=== PATIENT | male | born 1955 | race Caucasian/White ===

== ENCOUNTER 2017-03-11 10:52 | Emergency (ER) | payer OTHER ==
[~2017-03-11] VITALS: Ht 182.9 cm; Wt 116.8 kg
[~2017-03-11 10:52] MED LIST: ASCA500 PO; ESOM20CA PO; FAMO20TA11 PO; META1TAB22 PO; VITAMIN B2 PO
[2017-03-11 10:58] VITALS: TEMP 36.6; Ht 182.9 cm; Wt 116.8 kg
[2017-03-11 11:50] LABS: URINE APPEARANCE CLEAR (CLEAR); URINE BILIRUBIN NEG (NEG); URINE COLOR YELLOW; URINE NITRITE NEG (NEG); URINE SPECIFIC GRAVITY 1.017 (1.000-1.030); UROBILINOGEN NEG (NEG); ZZUR CULT IF INDIC CLEAN CATCH NO
[2017-03-11 11:50] LABS: BASO % 0.2 %; BASO ABS # 0.02 K/uL (0-0.2); COMPLETE YES; EOS % 0.8 %; HEMATOCRIT 42.9 % (42-52); IG% 0.4 %; LYMPH ABS # 2.08 K/uL (1.2-3.4); MEAN CELL VOLUME 96.6 fL (80-100); MEAN CORPUSCULAR HEMOGLOBIN 33.8 pg (25-34); MEAN PLATELET VOLUME 11.1 fL (7.4-10.4); MONO % 8.2 %; NEUT % 67.4 %; PLATELET COUNT 166 K/uL (130-400); RED BLOOD COUNT 4.44 M/uL (4.7-6.1); WHITE BLOOD COUNT 9.03 K/uL (4.8-10.8)
[2017-03-11 11:51] LABS: MANUAL MICROSCOPIC REQUIRED? NO; REVIEW REQ? NO
[2017-03-11 12:09] LABS: BUN/CREATININE RATIO 14.3 (10-20); CALCIUM 9.2 mg/dl (8.5-10.1); CREATININE 1.32 mg/dl (0.60-1.40); POTASSIUM 3.7 mmol/L (3.5-5.1)
[2017-03-11 12:12] LABS: ALB/GLOB RATIO 1.2 (0.9-2)
[2017-03-11] MEDS ORDERED: OPTIRAY 320 IV PRN (12:30)
--- NOTE | 2017-03-11 15:03 | DIAGNOSTIC IMAGING REPORT ---
ABD/PELVIS IV AND ORAL CONT CT DOSE: 1101.43 mGy.cm HISTORY: Flank pain RLQ abd pain TECHNIQUE: Multiaxial CT images of the abdomen and pelvis were performed following the use of intravenous and oral contrast. A dose lowering technique was utilized adhering to the principles of ALARA. COMPARISON STUDY: None. FINDINGS: Lung bases are clear. The liver spleen and pancreas are unremarkable. Kidneys negative for hydronephrosis. There is a 3 mm nonobstructing calcification mid aspect right kidney. Gallbladder is negative for distention. The appendix is normal. Bowel pattern is nonobstructive. There is findings of mild chronic sigmoid diverticulosis. There is no evidence for acute diverticulitis. There are no obstructive changes. IMPRESSION: 1. Normal appendix. 2. Mild/moderate chronic sigmoid diverticulosis. 3. No evidence for acute diverticulitis. 4. Nonobstructing right renal calcification. 5. 3 mm nonobstructing right renal calcification. The above report was generated using voice recognition software. It may contain grammatical, syntax or spelling errors. Electronically signed by: David Leslie M.D. 03/11/2017 3:02 PM Dictated Date/Time: 03/11/2017 2:59 PM
[2017-03-11 16:19] VITALS: BP 140/81; PULSE 68; O2SAT 98
--- NOTE | 2017-03-11 20:29 | EMERGENCY ROOM VISIT NOTE ---
ED Visit Note First contact with patient: 11:57 Chief Complaint: Abdominal pain. History of Present Illness: Mr. Lee is a 61 year-old white male who ambulates into the ED complaining of right lower quadrant abdominal pain. Historically patient reports renal calculi. Mr. Lee is a 61-year-old white male who ambulates into the ED complaining of right lower quadrant abdominal pain. He reports his pain started last evening approximately 12-13 hours ago. Since that time his pain has been constant. He describes his pain as a sharp discomfort just superior to McBurney's point. He rates his discomfort 5/10. His pain is nonradiating. His pain worsens with palpation and coughing. He reports he has taken some ibuprofen with mild relief of his discomfort. Associated with his pain he reports she's had a decreased appetite, mild nausea but no vomiting and some mild constipation. Patient denies fevers, chills, sweats, skin eruptions, skin color changes, upper respiratory tract symptoms, shortness of breath, chest pain, rectal bleeding, black/tarry stools, urinary symptoms, hematuria, back/flank pain. Review of Systems: As noted above in history of present illness. All body systems were reviewed and found to be negative as noted above. Past Medical History: As previously noted Current Medications: Patient denies. Allergies to Medications: Nitrates. Social History: Patient is currently employed; he feels safe in his home environment; he denies tobacco use. Physical Examination: Vital Signs: Date Time Temp Pulse Resp B/P (MAP) Pulse Ox O2 Delivery O2 Flow Rate FiO2 03/11/17 16:19 68 16 140/81 98 03/11/17 14:44 69 18 115/66 99 Room Air 03/11/17 12:58 68 18 133/74 98 Room Air 03/11/17 10:58 36.6 64 14 163/82 Room Air GENERAL: 61-year-old male in mild distress due to pain, nontoxic-appearing, afebrile and hemodynamically stable. NEUROLOGICAL: Awake, alert and oriented to person, place and time. Answering questions appropriately and following commands. Normal gait. Good hand eye coordination. SKIN: Warm, dry and pink. No soft tissue eruptions or trauma noted. HEENT: Atraumatic and normocephalic. PERRLA. Sclera white and conjunctiva pink. Oral cavity moist and pink. Pharynx is nonerythematous or edematous. Speech normal. No lymphadenopathy. Trachea midline. No jugular venous distention. BACK: No tenderness over the bony spine. No CVA tenderness. THORAX: Lungs sounds are clear to auscultation and equal bilaterally with symmetrical chest wall. No wheezing, rales or rhonchi. No crepitus, tenderness , subcutaneous air or deformities noted. HEART: Regular rate and rhythm. No gallops, rubs or murmurs are appreciated. ABDOMEN: Lead distended, soft with moderate tenderness in the right lower quadrant just superior to McBurney's point with mild guarding. Positive bowel sounds in all quadrants. No rigidity or organomegaly. EXTREMITIES: Moves all extremities well on command and with purpose. All distal neurovascular statuses are intact and equal bilaterally. ED Course: Patient is assessed as noted above. Laboratory Testing: Test 03/11/17 11:30 03/11/17 11:32 Range/Units White Blood Count 9.03 4.8-10.8 K/uL Red Blood Count 4.44 4.7-6.1 M/uL Hemoglobin 15.0 14.0-18.0 g/dL Hematocrit 42.9 42-52 % Mean Corpuscular Volume 96.6 80-100 fL Mean Corpuscular Hemoglobin 33.8 25-34 pg Mean Corpuscular Hemoglobin Concent 35.0 32-36 g/dl Platelet Count 166 130-400 K/uL Mean Platelet Volume 11.1 7.4-10.4 fL Neutrophils (%) (Auto) 67.4 % Lymphocytes (%) (Auto) 23.0 % Monocytes (%) (Auto) 8.2 % Eosinophils (%) (Auto) 0.8 % Basophils (%) (Auto) 0.2 % Neutrophils # (Auto) 6.08 1.4-6.5 K/uL Lymphocytes # (Auto) 2.08 1.2-3.4 K/uL Monocytes # (Auto) 0.74 0.11-0.59 K/uL Eosinophils # (Auto) 0.07 0-0.5 K/uL Basophils # (Auto) 0.02 0-0.2 K/uL RDW Standard Deviation 43.5 36.4-46.3 fL RDW Coefficient of Variation 12.5 11.5-14.5 % Immature Granulocyte % (Auto) 0.4 % Immature Granulocyte # (Auto) 0.04 0.00-0.02 K/uL Sodium Level 137 136-145 mmol/L Potassium Level 3.7 3.5-5.1 mmol/L Chloride Level 107 98-107 mmol/L Carbon Dioxide Level 26 21-32 mmol/L Anion Gap 4.0 3-11 mmol/L Blood Urea Nitrogen 19 7-18 mg/dl Creatinine 1.32 0.60-1.40 mg/dl Est Creatinine Clear Calc Drug Dose 79.5 ml/min Estimated GFR () 68.0 Estimated GFR (Non- 58.6 BUN/Creatinine Ratio 14.3 10-20 Random Glucose 93 70-99 mg/dl Calcium Level 9.2 8.5-10.1 mg/dl Total Bilirubin 0.5 0.2-1 mg/dl Aspartate Amino Transf (AST/SGOT) 14 15-37 U/L Alanine Aminotransferase (ALT/SGPT) 26 12-78 U/L Alkaline Phosphatase 69 45-117 U/L Total Protein 7.3 6.4-8.2 gm/dl Albumin 4.0 3.4-5.0 gm/dl Globulin 3.3 2.5-4.0 gm/dl Albumin/Globulin Ratio 1.2 0.9-2 Lipase 132 73-393 U/L Urine Color YELLOW Urine Appearance CLEAR CLEAR Urine pH 5.0 4.5-7.5 Urine Specific [place] 1.017 1.000-1.030 Urine Protein NEG NEG Urine Glucose (UA) NEG NEG Urine Ketones NEG NEG Urine Occult Blood NEG NEG Urine Nitrite NEG NEG Urine Bilirubin NEG NEG Urine Urobilinogen NEG NEG Urine Leukocyte Esterase NEG NEG CT Abdomen and Pelvis with IV and Oral Contrast: Was reviewed by myself and read by the radiologist showing normal. Appendix, mild to moderate chronic diverticulosis without signs of acute diverticulitis, nonobstructing right renal calculi. Was offered pain medication and refused. Patient was reassessed multiple times during his stay in the emergency department. Patient's case was reviewed with Dr. Guy; we agreed on diagnostic approach , treatment, disposition and plan. Patient was educated about today's findings and instructed on his treatment plan ; he verbalized understanding and agreement with this plan. Clinical Impression: Right lower quadrant. Decision-Making: Initially my differential diagnosis I considered appendicitis, ureter calculus, constipation, bowel obstruction, hepatitis and other causes. Disposition: Patient discharged home in stable condition; prior to departure he was reassessed and subjectively reported he was feeling better and rated his discomfort 3/10. Plan: Patient was encouraged to alternate ibuprofen and acetaminophen every 3 hours as needed for pain. Patient was encouraged to stay well-hydrated. Patient was encouraged to continue current medications. Patient was encouraged not to have anything the ED or drink after midnight. Patient was encouraged to follow-up with family physician tomorrow morning and if unable to see this family doctor return to the ED. Patient was encouraged return ED sooner for worsening/uncontrolled pain, fevers , vomiting or any new/concerning symptoms.
== END 2017-03-11 16:12 | disposition home or self-care (01) ==
LOC: C.EDB 10:54 → C.EDC 16:12
DX: R10.31 Right lower quadrant pain (principal); K57.90 Diverticulosis of intestine, part unspecified, without perforation or abscess without bleeding; N20.0 Calculus of kidney

== ENCOUNTER 2017-03-31 21:52 | Inpatient (IN) | payer OTHER ==
[~2017-03-31] VITALS: Ht 180.3 cm; Wt 117.8 kg
[2017-04-01 00:05] VITALS: BP 140/79; PULSE 75; TEMP 36.9; O2SAT 98; Ht 180.3 cm; Wt 117.8 kg
[2017-04-01] MEDS ORDERED: MoRPHine SULFATE 2 MG/ML CARP IV PRN (01:15)
[2017-04-01] MEDS ORDERED: ACETAMINOPHEN 325 MG TAB PO PRN (01:15)
[2017-04-01] MEDS ORDERED: NITROGLYCERIN 0.4 MG SL PER TAB CHARGE SL PRN (01:15)
[2017-04-01] MEDS ORDERED: POLYETHYLENE (MIRALAX) 17 GM PACK PO PRN (01:15)
[2017-04-01] MEDS ORDERED: PHARMACIST DISCHARGE MED REC CONSULT PRN (01:15)
[2017-04-01] MEDS ORDERED: ALUMINUM/MAGNESIUM/SIMETH (MAALOX MAX) 30 ML UDC PO PRN (01:15)
[2017-04-01] MEDS ORDERED: MAGNESIUM HYDROXIDE SUSP 30 ML UDC PO PRN (01:15)
[2017-04-01] MEDS ORDERED: ONDANSETRON INJ 2 MG/ML 2 ML VIAL IV PRN (01:15)
[2017-04-01 01:35] LABS: BASO % 0.2 %; BASO ABS # 0.02 K/uL (0-0.2); EOS % 0.8 %; EOS ABS # 0.07 K/uL (0-0.5); HEMATOCRIT 40.1 % (42-52); HEMOGLOBIN 14.2 g/dL (14.0-18.0); IG# 0.03 K/uL (0.00-0.02); LYMPH % 25.6 %; LYMPH ABS # 2.17 K/uL (1.2-3.4); MEAN CELL VOLUME 96.6 fL (80-100); MEAN CORPUSCULAR HEMOGLOBIN 34.2 pg (25-34); MEAN CORPUSCULAR HGB CONC 35.4 g/dl (32-36); MONO % 12.4 %; MONO ABS # 1.05 K/uL (0.11-0.59); NEUT % 60.6 %; NEUT ABS # 5.15 K/uL (1.4-6.5); PLATELET COUNT 166 K/uL (130-400); RED CELL DISTRIBUTION WIDTH CV 12.6 % (11.5-14.5); RED CELL DISTRIBUTION WIDTH SD 43.8 fL (36.4-46.3); WHITE BLOOD COUNT 8.49 K/uL (4.8-10.8)
[2017-04-01] MEDS ORDERED: OMEP20TA PO (01:52)
[2017-04-01 02:01] LABS: PTT PATIENT 25.5 SECONDS (21.0-31.0)
[2017-04-01 02:10] LABS: BLOOD UREA NITROGEN 19 mg/dl (7-18); CALCIUM 8.7 mg/dl (8.5-10.1); CARBON DIOXIDE 24 mmol/L (21-32); CKMB 1.1 ng/ml (0.5-3.6); GLUCOSE 109 mg/dl (70-99); POTASSIUM 3.9 mmol/L (3.5-5.1); SODIUM 140 mmol/L (136-145)
--- NOTE | 2017-04-01 02:22 | History and Physical ---
History & Physical Date & Time of Service: Apr 01, 2017 at 02:00 Chief Complaint: Stroke-Like Symptoms, Transient Global Amnesia Primary Care Physician: Frank Lopez M.D. History of Present Illness Source: patient, family, hospital records This is a 62 yo m with a history of SON, venous insufficiency and migraine with scotoma that is a direct transfer from [facility]. The patient states that at approx 1630 today the patient had a sudden surge of a warm sensation/ tingling that originated from his arms and throat and shot into his chest. Right after he developed some mild confusion because he went to look at his fit bit to check his heart rate and he felt unable to work the watch. This lasted a short time. Approx 15 minutes after this episode he had a second episode which was similar however he was now unable to remember a recent conversation, could not remember his birthday ( which was 2 days prior), a recent vacation or where he was. This was associated with one of his typical migraine headaches however was slightly more severe in nature. It was frontal, without photophobia or his "normal flashing lights" and was associated with nausea and a "weird taste in my mouth almost like I was holding my breath for a long time". He currently has a ORELLANA which is a 2/10 and has migrated to the occipital region. He did note that since he started avoiding nitrates in foods and being aware of stress and sleep he has one migraine every couple months but he had three cluster together within the last two weeks but without the amnesia episodes. He was evaluated in the [place] ED and CT was unremarkable except for some mild thickening of the left maxillary sinus. Blood work was unremarkable and included a BMP, CBC, troponin. UA and U tox was negative. Concern for stroke and requiring further evaluation at a facility that can provide a higher level of care the patient was transferred here. The patient has no history of TIA/ Stroke/ [place] in him or his family. He is a non smoker/ never smoker. Patient was recently seen in ED for RLQ pain which has since resolved. No history of DVT/PE or recent prolonged travel. Past Medical/Surgical History Nephrolithiasis Migraine with Scotoma Venous insufficiency GERD DDD and associated peripheral neuropathy of feet Family History Cancer Social History Smoking Status: Never Smoker Smokeless Tobacco Use: No Alcohol Use: none Drug Use: none Marital Status: Housing status: lives with family Occupational Status: employed ([employer]) Allergies Coded Allergies: Nitrates, Organic (Unverified Adverse Reaction, Severe, headaches,affects vision, 04/01/17) Home Medications Scheduled PRN Omeprazole (Omeprazole), 1 TAB PO DAILY PRN for Indigestion Review of Systems Constitutional: No fever, No chills, No sweats Eyes: No worsening of vision ENT: No hearing loss, No nasal symptoms, No sore throat, No trouble swallowing Respiratory: No cough, No sputum, No wheezing, No shortness of breath, No dyspnea on exertion, No dyspnea at rest Cardiovascular: No chest pain, No palpitations Abdomen: + nausea, No pain, No vomiting, No diarrhea, No constipation, No GI bleeding Musculoskeletal: + problem reported (denies calf pain), No joint pain, No muscle pain, No swelling Genitourinary - Male: No hematuria, No dysuria Neurologic: + memory loss, + numbness/tingling (decreased sensation to top of right foot and bottom of left which is BL from DDD), No weakness, No balance problems Psychiatric: + anxiety (revolving around this episode of amnesia), No depression symptoms Endocrine: No fatigue Hematologic / Lymphatic: No abnormal bleeding/bruising Integumentary: No rash Physical Exam Vital Signs Date Time Temp Pulse Resp B/P (MAP) Pulse Ox O2 Delivery O2 Flow Rate FiO2 04/01/17 00:05 36.9 75 18 140/79 98 Room Air General Appearance: no apparent distress Head: normocephalic, atraumatic Eyes: normal inspection, PERRL, EOMI, sclerae normal ENT: normal ENT inspection, hearing grossly normal, pharynx normal, + pertinent finding (without uvular or tongue deviation) Neck: supple, thyroid normal, no JVD, no carotid bruits, trachea midline Respiratory/Chest: normal breath sounds, no respiratory distress, no accessory muscle use Cardiovascular: regular rate, rhythm, no murmur, normal peripheral pulses Abdomen/GI: normal bowel sounds, non tender, soft, no organomegaly Back: normal inspection, no CVA tenderness, normal range of motion Extremities/Musculoskelatal: normal inspection, no calf tenderness, + pedal edema (+3 pedal edema on right and +2 on left BL) Neurologic/Psych: 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, no motor/sensory deficits (except decreased sensation to the dorsal aspect of right foot and plantar aspect of left foot ), alert, normal mood/affect, normal reflexes (Patellar +2), oriented x 3, + pertinent finding (no drift appreciated, without disdiadokinesia, coordination and blaance intact, babinski WNL, no ankle clonus ) Skin: normal color, warm/dry, no rash Lymphatic: no adenopathy Diagnostics Laboratory Results Results Past 24 Hours Test 04/01/17 01:09 04/01/17 01:27 Range/Units Creatine Kinase MB Ratio 0-3.0 White Blood Count 8.49 4.8-10.8 K/uL Red Blood Count 4.15 4.7-6.1 M/uL Hemoglobin 14.2 14.0-18.0 g/dL Hematocrit 40.1 42-52 % Mean Corpuscular Volume 96.6 80-100 fL Mean Corpuscular Hemoglobin 34.2 25-34 pg Mean Corpuscular Hemoglobin Concent 35.4 32-36 g/dl Platelet Count 166 130-400 K/uL Mean Platelet Volume 11.0 7.4-10.4 fL Neutrophils (%) (Auto) 60.6 % Lymphocytes (%) (Auto) 25.6 % Monocytes (%) (Auto) 12.4 % Eosinophils (%) (Auto) 0.8 % Basophils (%) (Auto) 0.2 % Neutrophils # (Auto) 5.15 1.4-6.5 K/uL Lymphocytes # (Auto) 2.17 1.2-3.4 K/uL Monocytes # (Auto) 1.05 0.11-0.59 K/uL Eosinophils # (Auto) 0.07 0-0.5 K/uL Basophils # (Auto) 0.02 0-0.2 K/uL RDW Standard Deviation 43.8 36.4-46.3 fL RDW Coefficient of Variation 12.6 11.5-14.5 % Immature Granulocyte % (Auto) 0.4 % Immature Granulocyte # (Auto) 0.03 0.00-0.02 K/uL EKG [place] EKG reviewed and HR 60, NSR without ischemic changes or ectopic beats Impression Assessment and Plan This is a 62 yo m presenting to us after an episode of global transient ischemia concerning for TIA vs stroke vs migraine Global transient ischemia- r/o stroke -tele admission per cva protocol - echo in am - CT sent with patient, to be uploaded - MRI brain combo - Carotid dopplers - echo in am - HBA1C and FLP pending for am - troponin repeat - neurochecks q2h per protocol - PT OT Speech pending - Advance diet as tolerated after dysphagia screen - neuro consult Venous insufficiency - Continue Spironolactone 50 mg daily SON - CPAP HS GERD - Ranitidine prn available - patient takes omeprazole prn DVT Prophylaxis SCD full code Resident Physician Supervision Note: Pt evaluated independently. I discussed the case with the resident and agree with the findings and plan as documented in the note. Any exceptions or clarifications are listed here: 62 y/o M Hx SON, GERD - presenting as direct admission from [facility] due to 2 transient episodes of eihter confusion or acute memory loss - associated with preceding paresthesias. OE AAO x 3 S1,2 R CTAB NT, ND No CCE No deficits P: Pt will be evaluated for TIA/CVA - MRI/MRA, neuro consult pending Provided with ASA and a Statin Cont CPAP for SON Assigned to tlelemetry - neurochecks requested Documented By: Ramone Ngo Level of Care Telemetry Advanced Directives Existing Living Will: No Existing Power of Glass Engraver: No Resuscitation Status FULL RESUSCITATION VTE Prophylaxis VTE Risk Assessment Done? Y/N: Yes Risk Level: Moderate Given or contraindicated: SCD's Social Service Consult None Apply Note Total Time: Critical Care 30 - 74 minutes Additional Copies To Frank Lopez M.D.
[2017-04-01] MEDS ORDERED: RANITIDINE HCL 150 MG TAB PO PRN (02:30)
[2017-04-01] MEDS ORDERED: hydrOXYzine HCL 25 MG TAB PO PRN (02:30)
[2017-04-01] MEDS ORDERED: GADAVIST IV PRN (03:20)
[2017-04-01 04:14] VITALS: PULSE 60; O2SAT 96
[2017-04-01 04:24] VITALS: BP 108/67; PULSE 56; TEMP 36.7; O2SAT 96
[2017-04-01 06:58] LABS: HEMOGLOBIN A1C 5.4 % (4.5-5.6)
--- NOTE | 2017-04-01 07:15 | DIAGNOSTIC IMAGING REPORT ---
BILATERAL CAROTID DOPPLER STUDY HISTORY: global transient amnesia COMPARISON: None. TECHNIQUE: Real-time, grayscale, and color Doppler sonography of the carotid arteries was performed. Imaging reviewed in the transverse and longitudinal planes. All measurements were calculated based on NASCET criteria. FINDINGS: Antegrade flow is seen in the bilateral vertebral arteries. The brachial pressures are hemodynamically similar. Minimal scattered calcified plaque within the carotid arteries. The peak systolic velocity within the right ICA is 78 cm/s. The right systolic ratio is 1.1. The peak systolic velocity within the left ICA is 87 cm/s. The left systolic ratio is 1.0. IMPRESSION: No hemodynamically significant stenosis seen within the carotid arteries. Electronically signed by: Kofi López M.D. 04/01/2017 7:14 AM Dictated Date/Time: 04/01/2017 7:13 AM
[2017-04-01 07:20] VITALS: BP 121/72; PULSE 66; TEMP 36.5; O2SAT 98
--- NOTE | 2017-04-01 07:23 | DIAGNOSTIC IMAGING REPORT ---
Brain MRI WITH AND WITHOUT CONTRAST HISTORY: Memory loss. Migraine. Stroke like symptoms TECHNIQUE: Multiplanar multisequence MRI of the brain was performed both before and after the intravenous administration of contrast. COMPARISON STUDY: Outside hospital head CT 03/31/2017. FINDINGS: There are no areas of restricted diffusion to suggest acute infarction. The midline structures are intact. Mild mucosal thickening within the maxillary sinuses. The mastoid air cells are clear. The ventricles and sulci are within normal limits for age. There is no mass, hematoma, midline shift. The major vascular flow-voids at the skull base are well maintained. Postcontrast sequences show no areas of abnormal enhancement. IMPRESSION: No acute intracranial abnormality. Electronically signed by: Kofi López M.D. 04/01/2017 7:22 AM Dictated Date/Time: 04/01/2017 7:17 AM
[2017-04-01] MEDS ORDERED: ATORVASTATIN 20 MG TAB PO SCH (09:00)
[2017-04-01] MEDS ORDERED: SPIRONOLACTONE 25 MG TAB PO SCH (09:00)
[2017-04-01] MEDS ORDERED: ASPIRIN/ALUM/MAGNES/CAL CARB 325 MG TAB PO SCH (09:00)
[2017-04-01] MEDS ORDERED: PERFLUTREN LIPID MICROSPHERE (DEFINITY) IV ONE (09:20)
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
[2017-04-01 11:58] VITALS: BP 148/84; PULSE 68; TEMP 36.4; O2SAT 99
--- NOTE | 2017-04-01 12:02 | ECHOCARDIOGRAM REPORT ---
*NOTICE TO RECEIVING DEMOCRAT AGENCY This information is strictly Confidential and protected under [place] law. [place] law prohibits you from making any further disclosure of this information unless further disclosure is expressly permitted by the written consent of the person to whom it pertains or is authorized by law. A general authorization for the release of medical or other information is not sufficient for this purpose. Hospital accepts no responsibility if the information is made available to any other person, INCLUDING THE PATIENT. Interpretation Summary * Name: LETICIA COX Study Date: 04/01/2017 08:19 AM BP: 121/72 mmHg * Patient Location: C.2T\S\E218\S\1 HR: 66 * : 1955 (M/d/yyyy) Gender: Male Height: 71 in * Age: 62 yrs Ethnicity: CA Weight: 260 lb * Ordering Physician: Lashaun Romano * Referring Physician: Ramone Ngo * Performed By: Janet Rivas RDCS * * Reason For Study: Stroke like symptoms * BSA: 2.4 m2 * No cardiac source of emboli noted. * -- Conclusions -- * Left ventricular systolic function is normal. * Injection of contrast documented no interatrial shunt. Procedure Details * A complete two-dimensional transthoracic echocardiogram was performed (2D, M-mode, Doppler and color flow Doppler). * A saline contrast injection was performed to assess for cardiac shunting. * The injection was performed through an intravenous line in the right arm. * The attending nurse who injected the saline contrast was Eve Collier RN. * A total of 10 cc of agitated saline was given. * A contrast injection of Definity was performed to improve assessment of LV function. * Contrast was injected into an intravenous site in the right arm. * One vial of Definity ultrasound contrast was diluted in normal saline to a total volume of 10 ml. A total of '3' ml of solution was administered during imaging. * Lot # [id number] of Definity utilized for procedure. * Expiration date 1 May 05. * The attending nurse who injected the contrast agent was Eve Collier RN. Left Ventricle * The left ventricle is normal in size. * There is normal left ventricular wall thickness. * Left ventricular systolic function is normal. * Ejection Fraction = 50-55%. * Normal diastolic function * The left ventricular wall motion is normal. Right Ventricle * The right ventricle is normal in size and function. * The right ventricular systolic function is normal as assessed by tricuspid annular plane systolic excursion (TAPSE) (normal >1.5 cm). Atria * The left atrial size is normal. * Right atrial size is normal. * Injection of contrast documented no interatrial shunt. Mitral Valve * The mitral valve is grossly normal. * There is no mitral regurgitation noted. Tricuspid Valve * The tricuspid valve is not well visualized, but is grossly normal. * There is mild tricuspid regurgitation. Aortic Valve * The aortic valve is normal in structure and function. * No hemodynamically significant valvular aortic stenosis. * There is no significant aortic regurgitation. Great Vessels * The aortic root is normal size. Pericardium/Pleural * There is no pericardial effusion. MMode 2D Measurements and Calculations IVSd 1.2 cm LVIDd 4.6 cm LVIDs 3.2 cm LVPWd 1.1 cm IVS/LVPW 1.1 FS 30.4 % EDV(Teich) 97.0 ml ESV(Teich) 40.9 ml EF(Teich) 57.8 % EDV(cubed) 96.9 ml ESV(cubed) 32.7 ml EF(cubed) 66.2 % LV mass(C)d 188.3 grams LV mass(C)dI 79.9 grams/m\S\2 SV(Teich) 56.0 ml SI(Teich) 23.8 ml/m\S\2 SV(cubed) 64.1 ml SI(cubed) 27.2 ml/m\S\2 Ao root diam 2.9 cm Ao root area 6.4 cm\S\2 ACS 1.9 cm LA dimension 3.8 cm asc Aorta Diam 3.3 cm LA/Ao 1.3 LVOT diam 2.0 cm LVOT area 3.1 cm\S\2 LVAd ap4 39.5 cm\S\2 LVLd ap4 8.8 cm EDV(MOD-sp4) 143.5 ml EDV(sp4-el) 150.9 ml LVAs ap4 22.2 cm\S\2 LVLs ap4 6.6 cm ESV(MOD-sp4) 61.3 ml ESV(sp4-el) 63.4 ml EF(MOD-sp4) 57.2 % EF(sp4-el) 58.0 % LVAd ap2 48.7 cm\S\2 LVLd ap2 9.4 cm EDV(MOD-sp2) 208.5 ml EDV(sp2-el) 213.7 ml LVAs ap2 26.8 cm\S\2 LVLs ap2 7.2 cm ESV(MOD-sp2) 82.0 ml ESV(sp2-el) 85.2 ml EF(MOD-sp2) 60.7 % EF(sp2-el) 60.2 % LVLd %diff 6.8 % EDV(MOD-bp) 176.2 ml LVLs %diff 7.8 % ESV(MOD-bp) 73.5 ml EF(MOD-bp) 58.3 % SV(MOD-sp4) 82.1 ml SI(MOD-sp4) 34.8 ml/m\S\2 SV(MOD-sp2) 126.6 ml SI(MOD-sp2) 53.7 ml/m\S\2 SV(MOD-bp) 102.7 ml SI(MOD-bp) 43.6 ml/m\S\2 SV(sp4-el) 87.5 ml SI(sp4-el) 37.1 ml/m\S\2 SV(sp2-el) 128.6 ml SI(sp2-el) 54.5 ml/m\S\2 Doppler Measurements and Calculations MV E max raquel 99.4 cm/sec MV A max raquel 95.1 cm/sec MV E/A 1.0 MV dec time 0.23 sec Ao V2 max 148.0 cm/sec Ao max PG 8.8 mmHg Ao max PG (full) 4.5 mmHg ISAC(V,A) 2.2 cm\S\2 ISAC(V,D) 2.2 cm\S\2 LV V1 max PG 4.2 mmHg LV V1 max 102.8 cm/sec PA V2 max 116.7 cm/sec PA max PG 5.5 mmHg PA acc slope 436.7 cm/sec\S\2 PA acc time 0.17 sec PI max raquel 190.0 cm/sec PI max PG 14.4 mmHg PI dec slope 176.0 cm/sec\S\2 PI P1/2t 316.3 msec TR max raquel 226.7 cm/sec PA pr(Accel) 4.5 mmHg
--- NOTE | 2017-04-01 12:36 | Family Medicine Progress Note ---
Progress Note Date of Service Apr 01, 2017. Subjective Pt evaluation today including: conversation w/ patient, physical exam, chart review, lab review Pain: denies any ORELLANA this AM PO Intake: tolerating Voiding: no voiding problems This AM denies any ORELLANA, dizziness, sob, cp, abdominal pain, n/v, dysuria, d/c. Constitutional: No fever, No chills Respiratory: No shortness of breath Cardiovascular: No chest pain Abdomen: No pain, No nausea, No vomiting, No diarrhea, No constipation Male : No dysuria Neurologic: + problem reported (denies ORELLANA/dizziness) Medications Current Inpatient Medications Medications (Trade) Dose Ordered Sig/Kallie Route Start Time Stop Time Status Last Admin Dose Admin Miscellaneous Information (Pharmacist Discharge Med Rec Consult) 1 ea UD PRN N/A 04/01/17 01:15 05/01/17 01:14 Acetaminophen (Tylenol Tab) 650 mg Q4H PRN PO 04/01/17 01:15 05/01/17 01:14 Al Hydrox/Mg Hydrox/Simethicone (Maalox Max Susp) 15 ml Q4H PRN PO 04/01/17 01:15 05/01/17 01:14 Magnesium Hydroxide (Milk Of Magnesia Susp) 30 ml Q12H PRN PO 04/01/17 01:15 05/01/17 01:14 Ondansetron HCl (Zofran Inj) 4 mg Q6H PRN IV 04/01/17 01:15 05/01/17 01:14 Nitroglycerin (Nitrostat Tab) 0.4 mg UD PRN SL 04/01/17 01:15 05/01/17 01:14 Morphine Sulfate (MoRPHine SULFATE INJ) 2 mg Q30M PRN IV 04/01/17 01:15 04/15/17 01:14 Polyethylene (Miralax Powder Packet) 17 gm DAILY PRN PO 04/01/17 01:15 05/01/17 01:14 Ranitidine HCl (zANTac TAB) 150 mg BID PRN PO 04/01/17 02:30 05/01/17 02:29 Spironolactone (Aldactone Tab) 50 mg QAM PO 04/01/17 09:00 05/01/17 08:59 04/01/17 10:05 50 MG Hydroxyzine HCl (Vistaril Tab) 25 mg HS PRN PO 04/01/17 02:30 05/01/17 02:29 Gadobutrol (Gadavist) 11.5 mmol UD PRN IV 04/01/17 03:20 04/05/17 03:19 Atorvastatin Calcium (Lipitor Tab) 20 mg QAM PO 04/01/17 09:00 05/01/17 08:59 04/01/17 10:04 20 MG Aspirin (Ecotrin Tab) 81 mg QAM PO 04/02/17 09:00 05/02/17 08:59 Objective Vital Signs Date Time Temp Pulse Resp B/P (MAP) Pulse Ox O2 Delivery O2 Flow Rate FiO2 04/01/17 11:58 36.4 68 17 148/84 (105) 99 Room Air 04/01/17 08:00 Room Air 04/01/17 07:20 36.5 66 17 121/72 (88) 98 Room Air 04/01/17 04:24 36.7 56 18 108/67 (81) 96 Room Air 04/01/17 04:14 60 96 04/01/17 04:04 Nasal Cannula 2.0 04/01/17 00:05 36.9 75 18 140/79 98 Room Air Physical Exam General Appearance: no apparent distress Eyes: normal inspection, sclerae normal Respiratory/Chest: lungs clear, normal breath sounds Cardiovascular: regular rate, rhythm, no murmur Abdomen: normal bowel sounds, non tender, soft Neurologic/Psychiatric: switchboard wirer II-XII nml as tested, no motor/sensory deficits, alert, oriented x 3 Skin: warm/dry Laboratory Results 04/01/17 01:27 Red Blood Count 4.15, Mean Corpuscular Volume 96.6, Mean Corpuscular Hemoglobin 34.2, Mean Corpuscular Hemoglobin Concent 35.4, Mean Platelet Volume 11.0, Neutrophils (%) (Auto) 60.6, Lymphocytes (%) (Auto) 25.6, Monocytes (%) (Auto) 12.4, Eosinophils (%) (Auto) 0.8, Basophils (%) (Auto) 0.2, Neutrophils # (Auto ) 5.15, Lymphocytes # (Auto) 2.17, Monocytes # (Auto) 1.05, Eosinophils # (Auto ) 0.07, Basophils # (Auto) 0.02 04/01/17 01:27 Test 04/01/17 01:09 04/01/17 01:27 Creatine Kinase MB Ratio (0-3.0) White Blood Count 8.49 K/uL (4.8-10.8) Red Blood Count 4.15 M/uL (4.7-6.1) Hemoglobin 14.2 g/dL (14.0-18.0) Hematocrit 40.1 % (42-52) Mean Corpuscular Volume 96.6 fL (80-100) Mean Corpuscular Hemoglobin 34.2 pg (25-34) Mean Corpuscular Hemoglobin Concent 35.4 g/dl (32-36) Platelet Count 166 K/uL (130-400) Mean Platelet Volume 11.0 fL (7.4-10.4) Neutrophils (%) (Auto) 60.6 % Lymphocytes (%) (Auto) 25.6 % Monocytes (%) (Auto) 12.4 % Eosinophils (%) (Auto) 0.8 % Basophils (%) (Auto) 0.2 % Neutrophils # (Auto) 5.15 K/uL (1.4-6.5) Lymphocytes # (Auto) 2.17 K/uL (1.2-3.4) Monocytes # (Auto) 1.05 K/uL (0.11-0.59) Eosinophils # (Auto) 0.07 K/uL (0-0.5) Basophils # (Auto) 0.02 K/uL (0-0.2) RDW Standard Deviation 43.8 fL (36.4-46.3) RDW Coefficient of Variation 12.6 % (11.5-14.5) Immature Granulocyte % (Auto) 0.4 % Immature Granulocyte # (Auto) 0.03 K/uL (0.00-0.02) Prothrombin Time 10.0 SECONDS (9.0-12.0) Prothromb Time International Ratio 1.0 (0.9-1.1) Activated Partial Thromboplast Time 25.5 SECONDS (21.0-31.0) Partial Thromboplastin Ratio 1.0 Anion Gap 9.0 mmol/L (3-11) Est Creatinine Clear Calc Drug Dose 78.9 ml/min Estimated GFR () 68.7 Estimated GFR (Non- 59.3 BUN/Creatinine Ratio 14.8 (10-20) Estimated Average Glucose 108 mg/dl Hemoglobin A1c 5.4 % (4.5-5.6) Calcium Level 8.7 mg/dl (8.5-10.1) Magnesium Level 1.9 mg/dl (1.8-2.4) Creatine Kinase MB 1.1 ng/ml (0.5-3.6) Troponin I < 0.015 ng/ml (0-0.045) Triglycerides Level 267 mg/dl (0-150) Cholesterol Level 188 mg/dl (0-200) HDL Cholesterol 31 mg/dl LDL Cholesterol, Calculated 104 mg/dl VLDL Cholesterol, Calculated 53 mg/dl Cholesterol/HDL Ratio 6.1 Resident Involvement: Resident Care Provided Care Provided: Adult Hospital Medicine Reviewed: Pt Seen/Exam by Me History See discharge summary for details.
[2017-04-01] MEDS ORDERED: LPT20 PO ×2 (12:52→15:02)
[2017-04-01] MEDS ORDERED: ASPEC81 PO ×2 (12:52→15:02)
[2017-04-01] MEDS ORDERED: VRPSR180 PO (12:53)
--- NOTE | 2017-04-01 12:54 | Discharge Instructions ---
Discharge Instructions Date of Service Apr 01, 2017. Admission Reason for Admission: Stroke-Like Symptoms, Transient Global Amnesia Discharge Discharge Diagnosis / Problem: vasospasm induced transient global amnesia Discharge Goals Goal(s): Decrease discomfort, Diagnostic testing, Therapeutic intervention Activity Recommendations Activity Limitations: resume your previous activity . Instructions / Follow-Up Instructions / Follow-Up Mr. Rosa connors were admitted for transient episode of amnesia and headache. You were seen by our neurologist, Dr. Alberto and had imaging of your carotid arteries and MRI which were normal. Dr. Alberto did not believe you were having a transient ischemic attack or stroke but rather an episode of headache and amnesia (memory disturbance) caused by spasm of your veins which seems to be also causing your migraine headaches. He would like to start you on Verapamil SR 180mg once a day in the morning. He also recommended starting you on aspirin 81mg once a day, and atorvastatin 20mg once a day. - Please take the following medications as prescribed and sent to your pharmacy : - Verapamil SR 180mg once a day in the morning - Aspirin 81mg once a day - Atorvastatin 20mg once a day - Continue taking home medications: omeprazole for your acid reflux and spironolactone for your venous insufficiency as prescribed - Follow up with your primary care provider within a week Current Hospital Diet Patient's current hospital diet: Low Sodium Diet (2gm Na), AHA Diet (Heart Healthy) Discharge Diet Recommended Diet: AHA Diet (Heart Healthy) Pending Studies Studies pending at discharge: no Laboratory Results Hemoglobin A1c Test 04/01/17 01:27 Range/Units Estimated Average Glucose 108 mg/dl Hemoglobin A1c 5.4 4.5-5.6 % Lipid Panel Test 04/01/17 01:27 Range/Units Triglycerides Level 267 H 0-150 mg/dl Cholesterol Level 188 0-200 mg/dl HDL Cholesterol 31 mg/dl Cholesterol/HDL Ratio 6.1 LDL Cholesterol, Calculated 104 mg/dl Medical Emergencies . Who to Call and When: Medical Emergencies: If at any time you feel your situation is an emergency, please call 911 immediately. . Non-Emergent Contact Non-Emergency issues call your: Primary Care Provider . . "Provider Documentation" section prepared by Jordon Grace. . VTE Core Measure Inpt VTE Proph given/why not?: SCD's
[2017-04-01] MEDS ORDERED: VRP40 PO (15:02)
[2017-04-01 15:45] VITALS: BP 135/78; PULSE 63; TEMP 36.4; O2SAT 100
--- NOTE | 2017-04-01 19:00 | Discharge Summary ---
Discharge Summary Date of Service Apr 01, 2017. Discharge Summary Admission Date: Mar 31, 2017 at 23:55 Discharge Date: Apr 01, 2017 Discharge Disposition: Home Principal Diagnosis: transient amnesia induced by vasospasm Problems/Secondary Diagnoses: GERD SON Venous insufficiency Procedures: MRI brain with and without contrast - no acute IC pathology B/l carotid dopplers - no HD significant stenosis Consultations: neurology - Dr. Pack Medication Reconciliation New Medications: Verapamil (Calan) 40 Mg Tab 40 MG PO DAILY for 30 Days, #30 TAB Aspirin (Aspirin EC Low Dose) 81 Mg Ectab 81 MG PO QAM for 30 Days, #30 TAB Atorvastatin (Lipitor) 20 Mg Tab 20 MG PO QAM for 30 Days, #30 TAB Continued Medications: Omeprazole (Omeprazole) 20 Mg Tab 1 TAB PO DAILY PRN for Indigestion for 90 Days, #90 TAB 1 Refill Discharge Exam Physical Exam General Appearance: no apparent distress Eyes: normal inspection, sclerae normal Respiratory/Chest: lungs clear, normal breath sounds Cardiovascular: regular rate, rhythm, no murmur Abdomen: normal bowel sounds, non tender, soft Neurologic/Psychiatric: program attendant II-XII nml as tested, no motor/sensory deficits, alert, oriented x 3 Skin: warm/dry Constitutional: No fever, No chills Respiratory: No shortness of breath Cardiovascular: No chest pain Abdomen: No pain, No nausea, No vomiting, No diarrhea, No constipation Male : No dysuria Neurologic: + problem reported (denies ORELLANA/dizziness) Hospital Course 62 yoM with hx of GERD, venous insufficiency, migraine with scotoma presented after an episode of global transient ischemia concerning for TIA vs stroke vs complex migraine. Global transient ischemia- r/o stroke - admitted to telemetry - CT sent with patient, to be uploaded - MRI brain combo - no acute IC pathology - Carotid dopplers - no HD significant stenosis with carotid arteries - echo - no cardiac emboli, LV systolic function is normal, and no interatrial shunt - HBA1C 5.4 - FLP - trig 267, total cholesterol 188, LDL 104, HDL 31 - troponin <0.015 - neuro consult - unlikely to have had a TIA or stroke - likely vasospasm induced transient amnesia given hx of vasospasm induced migraine HAs - recommended verapamil SR 180mg QAM to prevent vasospasm - Aspirin 81mg daily and atorvastatin 20mg daily Venous insufficiency - Continue Spironolactone 50 mg daily SON - CPAP HS GERD - Ranitidine prn available - patient takes omeprazole prn DVT Prophylaxis - SCD full code Total Time Spent: Less than 30 minutes This includes examination of the patient, discharge planning, medication reconciliation, and communication with other providers. Discharge Instructions Please refer to the electronic Patient Visit Report (Discharge Instructions) for additional information. Additional Copies To Daryn Lopez M.D. Reviewed: Pt Seen/Exam by Me History Pt feels that he is back to his usual. He has no further confusion/memory gaps , headache. No vision changes, inability to use limbs, slurred speech. Pt is tolerating PO without issue. No chest pain or SOB. Agree with HPI/ROS as noted by resident General Appearance: WD/WN, no apparent distress Respiratory: normal breath sounds, no respiratory distress Cardiovascular: normal peripheral pulses, regular rate, rhythm Gastrointestinal: non tender, soft Extremities: non-tender, no pedal edema Neurologic/Psychiatric: program attendant II-XII nml as tested, alert, normal mood/affect, oriented x 3, other (= strength against resistance in all limbs, speech and cognition are clear) Skin Characteristics: normal color, warm/dry Assessment/Plan Agree with plan as outlined above Neuro feels this is likely an atypical migraine Work up has been neg Advised for aspirin 81mg t/c verapamil for prevention of migraines Long discussion with pt about this medication He has been having issues with HR in the 40s recently, this may not be a good medication for him Given script and advised to monitor sx, discuss with PCP Discussed acupuncture for migraine prevention as well
[2017-04-02] MEDS ORDERED: ASPIRIN 81 MG ECTAB PO SCH (09:00)
== END 2017-04-01 17:20 | disposition home or self-care (01) | DRG 71 ==
LOC: C.2T 23:55
PROVIDERS: ADMIT Internal Medicine; ATTEND Family Medicine
DX: G45.4 Transient global amnesia (principal); I67.848 Other cerebrovascular vasospasm and vasoconstriction; G43.809 Other migraine, not intractable, without status migrainosus; K21.9 Gastro-esophageal reflux disease without esophagitis; I87.2 Venous insufficiency (chronic) (peripheral); G47.33 Obstructive sleep apnea (adult) (pediatric); Z99.89 Dependence on other enabling machines and devices; Z79.899 Other long term (current) drug therapy

== ENCOUNTER → 2017-05-05 | Outpatient (CLI) | payer OTHER ==
[~2017-05-05] MED LIST changes: -ASCA500 PO; +ASPEC81 PO; -ESOM20CA PO; -FAMO20TA11 PO; +LPT20 PO; -META1TAB22 PO; +OMEP20TA PO; -VITAMIN B2 PO
== END | disposition home or self-care (01) ==
LOC: C.LAB 11:35
PROVIDERS: ATTEND Family Medicine
DX: L60.9 Nail disorder, unspecified (principal)

== ENCOUNTER → 2017-10-31 | Outpatient (CLI) | payer OTHER ==
[~2017-10-31] MED LIST changes: -ASPEC81 PO; +ASPI-320 PO
--- NOTE | 2017-10-31 12:04 | DIAGNOSTIC IMAGING REPORT ---
LEFT ANKLE 3 VIEWS HISTORY: M25.572 Left ankle pain COMPARISON: None. FINDINGS: There is no fracture or dislocation. Mild soft tissue swelling. Mild osteoarthritis at the ankle joint. Small plantar and posterior calcaneal spurs. Mild soft tissue thickening at the distal attachment of the Achilles tendon. This may represent a tendinopathy or retrocalcaneal bursitis. No radiopaque foreign bodies. IMPRESSION: 1. No fracture or dislocation within the left ankle. 2. Mild soft tissue thickening at the distal attachment of the Achilles tendon. This may represent a tendinopathy or retrocalcaneal bursitis. 3. Mild osteoarthritis. 4. Mild soft tissue swelling within the ankle. Electronically signed by: Kofi López M.D. 10/31/2017 12:03 PM Dictated Date/Time: 10/31/2017 12:02 PM
--- NOTE | 2017-10-31 12:06 | DIAGNOSTIC IMAGING REPORT ---
RIGHT SHOULDER 3 VIEWS HISTORY: M25.511 Right shoulder pain COMPARISON: None. FINDINGS: There is no fracture or dislocation. Soft tissues are unremarkable. The right clavicle is intact. Mild degenerative changes at the acromioclavicular and glenohumeral joints. Small acromial spurs are noted. IMPRESSION: 1. No fracture or dislocation within the right shoulder. 2. Mild osteoarthritis. Electronically signed by: Kofi López M.D. 10/31/2017 12:05 PM Dictated Date/Time: 10/31/2017 12:03 PM
[2017-10-31 13:08] LABS: BASO % 0.3 %; BASO ABS # 0.02 K/uL (0-0.2); EOS % 0.8 %; EOS ABS # 0.06 K/uL (0-0.5); HEMATOCRIT 40.8 % (42-52); HEMOGLOBIN 14.3 g/dL (14.0-18.0); IG# 0.03 K/uL (0.00-0.02); LYMPH % 29.9 %; LYMPH ABS # 2.14 K/uL (1.2-3.4); MEAN CELL VOLUME 97.1 fL (80-100); MEAN PLATELET VOLUME 11.5 fL (7.4-10.4); MONO % 7.6 %; MONO ABS # 0.54 K/uL (0.11-0.59); NEUT ABS # 4.36 K/uL (1.4-6.5); PLATELET COUNT 173 K/uL (130-400); RED CELL DISTRIBUTION WIDTH CV 12.8 % (11.5-14.5); RED CELL DISTRIBUTION WIDTH SD 45.5 fL (36.4-46.3); WHITE BLOOD COUNT 7.15 K/uL (4.8-10.8)
[2017-10-31 13:15] LABS: ALKALINE PHOSPHATASE 51 U/L (45-117); ALT/SGPT 26 U/L (12-78); AST/SGOT 15 U/L (15-37); BLOOD UREA NITROGEN 21 mg/dl (7-18); CALCIUM 9.1 mg/dl (8.5-10.1); CARBON DIOXIDE 23 mmol/L (21-32); CHOLESTEROL 171 mg/dl (0-200); CREATININE 1.32 mg/dl (0.60-1.40); GLUCOSE 95 mg/dl (70-99); LDL CHOLESTEROL CALCULATED 98 mg/dl; POTASSIUM 4.3 mmol/L (3.5-5.1); SODIUM 139 mmol/L (136-145)
[2017-10-31 13:26] LABS: HEMOGLOBIN A1C 5.6 % (4.5-5.6)
== END | disposition home or self-care (01) ==
LOC: C.RAD 11:18
PROVIDERS: ATTEND Family Medicine
DX: M25.511 Pain in right shoulder (principal); M25.572 Pain in left ankle and joints of left foot; K29.70 Gastritis, unspecified, without bleeding; R60.9 Edema, unspecified; E78.5 Hyperlipidemia, unspecified; E66.9 Obesity, unspecified